=== PATIENT | female | born 1940 | race Caucasian/White ===

== ENCOUNTER 2023-09-01 15:05 | Emergency (ER) | payer MEDICARE ==
[~2023-09-01] VITALS: Ht 165.1 cm; Wt 77.2 kg
[~2023-09-01 15:05] MED LIST: LORA2TAB89 PO
[2023-09-01 15:20] VITALS: BP 124/76; RESP 18; O2SAT 99
[2023-09-01 15:43] VITALS: PULSE 115
== END 2023-09-01 16:58 | disposition left against medical advice (07) ==
LOC: ER 15:05 → EDBD 15:05 → ER 16:58
DX: R53.1 Weakness (principal); R07.89 Other chest pain; Z53.21 Procedure and treatment not carried out due to patient leaving prior to being seen by health care provider
CPT/HCPCS: 93005

== ENCOUNTER 2023-10-02 14:08 | Inpatient (IN) | payer MEDICARE ==
[~2023-10-02] VITALS: Ht 165.1 cm; Wt 87.1 kg
[2023-10-02 16:13] LABS: Basophils # (auto) 0 10 ^3/uL (0-0.2); Basophils % (auto) 0.5 % (0.0-2.0); Eosinophils # (auto) 0.3 10 ^3/uL (0-0.8); Eosinophils % (auto) 2.9 % (0.0-7.0); Hematocrit 30.8 % (36.0-46.0); Hemoglobin 9.4 g/dL (12.2-16.2); Lymphocytes # (auto) 0.7 10 ^3/uL (0.4-5.4); Lymphocytes % (auto) 7.7 % (10.0-50.0); Mean Corpuscular Hgb Conc. 30.6 g/dL (32.0-36.0); Mean Corpuscular Volume 78.5 fL (80.0-100.0); Monocytes # (auto) 0.8 10 ^3/uL (0-1.3); Monocytes % (auto) 8.2 % (0.0-12.0); Neutrophils # (auto) 7.4 10 ^3/uL (1.6-8.6); Neutrophils % (auto) 80.7 % (37.0-80.0); Red Blood Cells 3.92 10^6/uL (4.0-5.20); Red Cell Distribution Width 18.3 % (11.8-14.3); White Blood Cell 9.2 10^3/uL (4.4-10.8)
[2023-10-02 16:32] LABS: Alanine Aminotransferase 28 U/L (7-40); Albumin 3.9 g/dL (3.2-4.8); Alkaline Phosphatase 96 U/L (46-116); Anion Gap 7 (5-15); Aspartate Aminotransferase 26 U/L (13-40); BUN/Creatinine Ratio 14.1 (10.0-20.0); Blood Urea Nitrogen 13 mg/dL (9-23); Calcium 8.8 mg/dL (8.7-10.4); Carbon Dioxide 24 mmol/L (20-30); Chloride 111 mmol/L (98-107); Glucose 86 mg/dL (74-106); Magnesium 1.8 mg/dL (1.6-2.6); Potassium 3.6 mmol/L (3.5-5.1); Sodium 142 mmol/L (136-145); Total Protein 6.1 g/dL (5.7-8.2)
[2023-10-02] MEDS ORDERED: ACETAMINOPHEN 325 MG TAB PO PRN (22:00)
[2023-10-02] MEDS ORDERED: DOCUSATE SOD 100 MG CAP PO PRN (22:00)
[2023-10-02] MEDS ORDERED: ONDANSETRON HCL 4 MG/2 ML VIAL IV PRN (22:00)
[2023-10-02] MEDS: SODIUM CHLOR 0.9% PF (SALINE LOCK) 10ML VIAL/SYR IV SCH (22:00)
[2023-10-02 23:00] VITALS: PULSE 65; RESP 17; O2SAT 98
[2023-10-02] MEDS ORDERED: MORPHINE SULFATE INJ 2 MG/ml SYRG IV PRN (23:15)
[2023-10-02] MEDS ORDERED: NITROGLYCERIN 0.4 MG SL TAB SL PRN (23:15)
[2023-10-03] MEDS: SODIUM CHLORIDE 0.9% 1,000 ML IV ONE (00:01)
[2023-10-03] MEDS: HYDROcodone-ACET 5/325MG TAB PO PRN (00:07)
[2023-10-03] MEDS: ATORVASTATIN 20 MG TAB PO SCH (00:07)
[2023-10-03] MEDS: MELATONIN 5 MG TAB PO ONE (00:07)
[2023-10-03 06:02] LABS: Alanine Aminotransferase 18 U/L (7-40); Albumin 3.1 g/dL (3.2-4.8); Alkaline Phosphatase 71 U/L (46-116); Anion Gap 6 (5-15); Aspartate Aminotransferase 17 U/L (13-40); BUN/Creatinine Ratio 14.3 (10.0-20.0); Basophils # (auto) 0 10 ^3/uL (0-0.2); Basophils % (auto) 0.6 % (0.0-2.0); Bilirubin, Total 0.7 mg/dL (0.2-1.0); Blood Urea Nitrogen 12 mg/dL (9-23); Calcium 8.2 mg/dL (8.7-10.4); Carbon Dioxide 24 mmol/L (20-30); Chloride 112 mmol/L (98-107); Eosinophils # (auto) 0.3 10 ^3/uL (0-0.8); Glucose 82 mg/dL (74-106); Hemoglobin 7.7 g/dL (12.2-16.2); Lymphocytes # (auto) 1.1 10 ^3/uL (0.4-5.4); Nucleated Red Blood Cells % 0.1 %; Potassium 3.4 mmol/L (3.5-5.1); Red Cell Distribution Width 17.5 % (11.8-14.3); Sodium 142 mmol/L (136-145); White Blood Cell 5.4 10^3/uL (4.4-10.8)
[2023-10-03 06:05] LABS: Eosinophils % (auto) 5.3 % (0.0-7.0); Hematocrit 23.9 % (36.0-46.0); Lymphocytes % (auto) 20.9 % (10.0-50.0); Mean Corpuscular Hemoglobin 24.9 pg (28.0-32.0); Mean Corpuscular Hgb Conc. 32.2 g/dL (32.0-36.0); Mean Corpuscular Volume 77.2 fL (80.0-100.0); Monocytes # (auto) 0.6 10 ^3/uL (0-1.3); Monocytes % (auto) 10.8 % (0.0-12.0); Neutrophils # (auto) 3.4 10 ^3/uL (1.6-8.6); Neutrophils % (auto) 62.4 % (37.0-80.0)
[2023-10-03 07:50] VITALS: PULSE 70; RESP 15; O2SAT 97
[2023-10-03 08:43] LABS: % Iron Saturation 4.8 % (15-50)
[2023-10-03 08:54] LABS: INR 1.13 (0.9-1.15); Prothrombin Time 11.8 sec (9.3-11.8)
[2023-10-03] MEDS: POTASSIUM CHL 20 Meq TABLET PO ONE (09:00)
[2023-10-03 09:07] LABS: CRP High Sensitivity 2.5 mg/dL (<1.0)
[2023-10-03 09:09] LABS: Magnesium 1.9 mg/dL (1.6-2.6)
[2023-10-03] MEDS ORDERED: LORazepam 2MG/ML-1ML VIAL IV PRN (10:00)
[2023-10-03 10:38] LABS: Urine Bacteria NONE SEEN /hpf (None Seen); Urine Blood Negative /uL (Negative); Urine Clarity Clear (Clear); Urine Color Yellow (Yellow); Urine Mucus FEW (None Seen); Urine Protein, UAD Negative (Negative); Urine Specific Gravity 1.014 (1.001-1.035); Urine Urobilinogen Normal (Negative); Urine WBC 7 /hpf (0 - 5); Urine pH 5.5 (5.0-8.0)
[2023-10-03 10:42] LABS: Ferritin 14.9 ng/mL (10-291)
[2023-10-03] MEDS ORDERED: ATOR20TA PO (11:09)
[2023-10-03] MEDS ORDERED: VORT1TAB PO (11:09)
[2023-10-03] MEDS ORDERED: FURO40TA4 PO (11:09)
[2023-10-03] MEDS ORDERED: DRON400T PO (11:09)
[2023-10-03] MEDS ORDERED: LORA-1123 PO (11:09)
[2023-10-03] MEDS ORDERED: IBUP-1456 PO (11:09)
[2023-10-03 11:23] LABS: Folate (Folic Acid) 11.32 ng/mL (>5.38)
[2023-10-03] MEDS: CYANOCOBALAMIN (B-12) 1000 MCG/1 ML VIAL IM ONE (13:48)
[2023-10-03] MEDS: cefTRIAXone 1GM/50ML D5W 50 ML IV ONE (13:48)
[2023-10-03] MEDS: GABAPENTIN 100 MG CAP PO SCH (14:16)
[2023-10-03 16:48] VITALS: BP 135/57; PULSE 71; RESP 18; TEMP 98.3; O2SAT 97
[2023-10-03 16:53] VITALS: BP 135/57; PULSE 71; RESP 18; TEMP 98.3
[2023-10-03 16:58] LABS: Erythrocyte Sedimentation Rate 15 mm/hr (0-20)
[2023-10-03] MEDS: LACTULOSE 20Gm/30ML SOLN PO ONE (17:10)
[2023-10-03 20:00] VITALS: PULSE 80
[2023-10-03 22:00] VITALS: BP 136/64; PULSE 90; RESP 18; TEMP 97.9; O2SAT 97
[2023-10-04] VITALS (7 sets, daily range): BP systolic 111–135; BP diastolic 46–71; PULSE 53–86; RESP 16–24; TEMP 98–98.5; O2SAT 91–96
[2023-10-04] MEDS ORDERED: AMIODARONE HCL 200 MG TAB PO SCH (07:00)
[2023-10-04] MEDS: cefTRIAXone 1GM/50ML D5W 50 ML IV SCH (09:24)
[2023-10-04] MEDS: CYANOCOBALAMIN 500 MCG TAB PO SCH (09:24)
[2023-10-04 11:06] LABS: Basophils # (auto) 0 10 ^3/uL (0-0.2); Basophils % (auto) 0.2 % (0.0-2.0); Eosinophils # (auto) 0.1 10 ^3/uL (0-0.8); Hematocrit 27.3 % (36.0-46.0); Hemoglobin 8.6 g/dL (12.2-16.2); Lymphocytes # (auto) 0.4 10 ^3/uL (0.4-5.4); Neutrophils # (auto) 7.6 10 ^3/uL (1.6-8.6)
[2023-10-04 11:10] LABS: Eosinophils % (auto) 1.5 % (0.0-7.0); Mean Corpuscular Hemoglobin 24.2 pg (28.0-32.0); Mean Corpuscular Hgb Conc. 31.3 g/dL (32.0-36.0); Mean Corpuscular Volume 77.1 fL (80.0-100.0); Monocytes # (auto) 0.7 10 ^3/uL (0-1.3); Monocytes % (auto) 7.6 % (0.0-12.0); Neutrophils % (auto) 85.7 % (37.0-80.0); Red Blood Cells 3.54 10^6/uL (4.0-5.20); Red Cell Distribution Width 17.3 % (11.8-14.3); White Blood Cell 8.9 10^3/uL (4.4-10.8)
[2023-10-04 11:32] LABS: Alanine Aminotransferase 16 U/L (7-40); Albumin 3.5 g/dL (3.2-4.8); Alkaline Phosphatase 74 U/L (46-116); Anion Gap 6 (5-15); Aspartate Aminotransferase 16 U/L (13-40); BUN/Creatinine Ratio 11.8 (10.0-20.0); Blood Urea Nitrogen 8 mg/dL (9-23); Calcium 8.4 mg/dL (8.5-10.1); Carbon Dioxide 27 mmol/L (20-30); Chloride 105 mmol/L (98-107); Glucose 99 mg/dL (74-106); Potassium 3.7 mmol/L (3.5-5.1); Sodium 138 mmol/L (136-145)
[2023-10-04 11:33] LABS: Total Protein 5.5 g/dL (5.7-8.2)
[2023-10-04 11:45] LABS: Magnesium 1.7 mg/dL (1.6-2.6)
[2023-10-04] MEDS: HYDROcodone-ACET 7.5/325MG TAB PO PRN (11:45)
[2023-10-04] MEDS: IRON SUCROSE COMPLEX 100 ML IV SCH (13:49)
[2023-10-04] MEDS: AMIODARONE HCL 200 MG TAB PO SCH (22:33)
[2023-10-05] VITALS (9 sets, daily range): BP systolic 102–134; BP diastolic 56–60; PULSE 70–91; RESP 16–20; TEMP 97–99.6; O2SAT 91–96
[2023-10-05 06:30] LABS: Basophils # (auto) 0 10 ^3/uL (0-0.2); Basophils % (auto) 0.4 % (0.0-2.0); Eosinophils # (auto) 0.3 10 ^3/uL (0-0.8); Lymphocytes # (auto) 0.3 10 ^3/uL (0.4-5.4); Monocytes # (auto) 0.5 10 ^3/uL (0-1.3)
[2023-10-05 06:34] LABS: Eosinophils % (auto) 4.4 % (0.0-7.0); Hematocrit 24.7 % (36.0-46.0); Hemoglobin 7.8 g/dL (12.2-16.2); Mean Corpuscular Hemoglobin 24.7 pg (28.0-32.0); Mean Corpuscular Hgb Conc. 31.7 g/dL (32.0-36.0); Mean Corpuscular Volume 77.8 fL (80.0-100.0); Monocytes % (auto) 7.4 % (0.0-12.0); Neutrophils # (auto) 5.2 10 ^3/uL (1.6-8.6); Neutrophils % (auto) 82.8 % (37.0-80.0); Red Blood Cells 3.17 10^6/uL (4.0-5.20); Red Cell Distribution Width 17.6 % (11.8-14.3); White Blood Cell 6.3 10^3/uL (4.4-10.8)
[2023-10-05 06:36] LABS: Calcium 8.5 mg/dL (8.7-10.4); Chloride 105 mmol/L (98-107); Potassium 3.7 mmol/L (3.5-5.1); Sodium 138 mmol/L (136-145)
[2023-10-05 06:37] LABS: Anion Gap 7 (5-15); Carbon Dioxide 26 mmol/L (20-30)
[2023-10-05 06:43] LABS: BUN/Creatinine Ratio 12.9 (10.0-20.0); Blood Urea Nitrogen 9 mg/dL (9-23); Glucose 76 mg/dL (74-106)
[2023-10-05] MEDS: LACTULOSE 20Gm/30ML SOLN PO ONE (12:38)
[2023-10-05] MEDS ORDERED: FER325T PO (14:10)
[2023-10-05] MEDS ORDERED: GAB100C PO ×2 (14:10→15:04)
[2023-10-05] MEDS ORDERED: CEFP200T15 PO (14:10)
[2023-10-05] MEDS ORDERED: CYAN500T3 PO (14:10)
[2023-10-05] MEDS ORDERED: METH-1181 PO (15:04)
[2023-10-05] MEDS ORDERED: ACET1CAP14 PO (15:04)
[2023-10-05] MEDS: GABAPENTIN 100 MG CAP PO SCH (20:36)
[2023-10-06 01:00] VITALS: BP 137/62; PULSE 83; RESP 20; TEMP 98.1; O2SAT 94
[2023-10-06 05:00] VITALS: BP 119/47; PULSE 84; RESP 20; TEMP 98.3; O2SAT 93
[2023-10-06 08:00] VITALS: BP 119/47; PULSE 84; RESP 20; TEMP 98.3; O2SAT 93
[2023-10-06 08:56] LABS: Hepatitis B Surface Antigen Negative (Negative)
[2023-10-06 09:00] VITALS: BP 129/66; PULSE 90; RESP 20; TEMP 98.1; O2SAT 90
[2023-10-06 09:02] VITALS: BP 119/47; PULSE 84; RESP 20; TEMP 98.3; O2SAT 93
[2023-10-06 09:17] LABS: Hepatitis C Antibody Negative (Negative)
== END 2023-10-06 09:45 | disposition home health service (06) | DRG 552 ==
LOC: EDBD 14:08 → ER 14:08 → TELE 23:03 → TELE-WESTW 10-03 16:21
PROVIDERS: ADMIT Internal Medicine; ATTEND Internal Medicine
DX: M54.81 Occipital neuralgia (principal); I13.0 Hypertensive heart and chronic kidney disease with heart failure and stage 1 through stage 4 chronic kidney disease, or unspecified chronic kidney disease; I50.32 Chronic diastolic (congestive) heart failure; N39.0 Urinary tract infection, site not specified; M50.30 Other cervical disc degeneration, unspecified cervical region; M47.22 Other spondylosis with radiculopathy, cervical region; M31.6 Other giant cell arteritis; D50.9 Iron deficiency anemia, unspecified; E87.6 Hypokalemia; I48.0 Paroxysmal atrial fibrillation; N18.2 Chronic kidney disease, stage 2 (mild); M47.892 Other spondylosis, cervical region; I07.1 Rheumatic tricuspid insufficiency; E53.8 Deficiency of other specified B group vitamins; Z91.199 Patient's noncompliance with other medical treatment and regimen due to unspecified reason; Z95.0 Presence of cardiac pacemaker; Z88.6 Allergy status to analgesic agent; Z79.01 Long term (current) use of anticoagulants; Z79.899 Other long term (current) drug therapy; Z86.73 Personal history of transient ischemic attack (TIA), and cerebral infarction without residual deficits; Z95.1 Presence of aortocoronary bypass graft
CPT/HCPCS: 36415; 70450; 70551; 71045; 72125; 72141; 80048; 80053; 80061; 81001; 82306; 82607; 82728; 82746; 83540; 83550; 83735; 83880; 84443; 84484; 85025; 85610; 85652; 86141; 86803; 86850; 86900; 86901; 87086; 87340; 93005; 93306; G0378; J1756

== ENCOUNTER 2025-05-20 11:58 | Emergency (ER) | payer MEDICARE, OTHER ==
[~2025-05-20] VITALS: Ht 162.6 cm; Wt 65.0 kg
[~2025-05-20 11:58] MED LIST changes: +ACET1CAP14 PO; +ATOR20TA PO; +CEFP200T15 PO; +CYAN500T3 PO; +DRON400T PO; +FER325T PO; +FURO40TA4 PO; +GAB100C PO; +LORA-1123 PO; -LORA2TAB89 PO; +VORT1TAB PO
[2025-05-20 12:10] VITALS: PULSE 96; RESP 16; O2SAT 98
--- NOTE | 2025-05-20 12:13 | ED.PDOC ---
History of Present Illness HPI Comments 84 year old female with PMHx pacemaker presents to the ED with a chief complaint of syncopal episode onset today (05/20/25). Per EMS, 911 was called due to patient experiencing syncopal episode, witnessed by , was assisted to the ground by . Patient states she had pacemaker placed by Dr. Willett, was told there was issues with a few wires. Upon EMS arrival, patient was in a-fib, RVR, was experiencing palpitations, was given 350 mL IVF in route to ED. Patient states symptoms had slight improvement. Is currently on Eliquis. Denies shortness of breath, headache, dizziness, blurred vision, weakness, numbness/tingling, fever, chills. No other symptoms or modifying factors present at this time. Chief Complaint: Syncope Time Seen by MD: 12:00 Reviewed Notes: Medications, Allergies Allergies: Coded Allergies: NO KNOWN ALLERGIES (Unverified , 05/20/25) Information Source: Patient, Emergency Med Personnel Mode of Arrival: EMS Severity: Moderate Timing: Hours Duration: Since onset Prehospital treatment: IVF Past Medical History PAST MEDICAL HISTORY: AFIB Surgical History: Pacemaker LARDER COOK History: No Pertinent LARDER COOK History Family History Family History: Reviewed,noncontributory to illness, No family hx of Cancer, No family hx of DM, No family hx of Heart svetlana, No family hx of HTN, No family hx ofKidney svetlana, No family hx of Liver svetlana, No family hx of Lung svetlana, No family hx of Stroke Social History Smoker: Non-Smoker Alcohol: Denies ETOH Use Drugs: Denies Drug Use Lives In: Home Constitutional: denies: chills, diaphoresis, fatigue, fever, malaise, sweats, weakness, others EENTM: denies: blurred vision, double vision, ear bleeding, ear discharge, ear drainage, ear pain, ear ringing, eye pain, eye redness, hearing loss, mouth pain, mouth swelling, nasal discharge, nose bleeding, nose congestion, nose pain, photophobia, tearing, throat pain, throat swelling, voice changes, others Respiratory: denies: cough, hemoptysis, orthopnea, SOB at rest, shortness of breath, SOB with excertion, stridor, wheezing, others Cardiovascular: reports: palpitations; denies: chest pain, dizzy spells, diaphoresis, Dyspnea on exertion, edema, irregular heart beat, left arm pain, lightheadedness, PND, syncope, others Gastrointestinal: denies: abdomen distended, abdominal pain, blood streaked bowels, constipated, diarrhea, dysphagia, difficulty swallowing, hematemesis, melena, nausea, poor appetite, poor fluid intake, rectal bleeding, rectal pain, vomiting, others Genitourinary: denies: abnormal vagina bleeding, burning, dyspareunia, dysuria, flank pain, frequency, hematuria, incontinence, pain, , vagina discharge, urgency, others Neurological: reports: others (syncope); denies: dizziness, fainting, headache, left sided numbness, left sided weakness, numbness, paresthesia, pre-existing deficit, right sided numbness, right sided weakness, seizure, speech problems, tingling, tremors, weakness Musculoskeletal: denies: back pain, gout, joint pain, joint swelling, muscle pain, muscle stiffness, neck pain, others Integumetry: denies: bruises, change in color, change in hair/nails, dryness, laceration, lesions, lumps, rash, wounds, others Allergic/Immunocompromised: denies: Difficulty Healing, Frequent Infections, Hives, Itching, others Hematologic/Lymphatic: denies: anemia, blood clots, easy bleeding, easy bruising, swollen glands, others Endocrine: denies: excessive hunger, excessive sweating, excessive thirst, excessive urination, flushing, intolerance to cold, intolerance to heat, unexplained weight gain, unexplained weight loss, others Psychiatric: denies: anxiety, bipolar disorder, depression, hopeless, panic disorder, schizophrenia, sleepless, suicidal, others All Other Systems: Reviewed and Negative Physical Exam General Appearance: Normal HEENT: Normal ENT Inspection, Pharynx Normal, TMs Normal Neck: Full Range of Motion, Non-Tender, Normal, Normal Inspection Respiratory: Chest Non-Tender, Lungs Clear, No Accessory Muscle Use, No Respiratory Distress, Normal Breath Sounds Cardiovascular: No Edema, No JVD, No Murmur, No Gallop, Normal Peripheral Pulses, Regular Rate/Rhythm Breast Exam: Deferred Gastrointestinal: No Organomegaly, Non Tender, No Pulsatile Mass, Normal Bowel Sounds, Soft Genitalia: Deferred Pelvic: Deferred Rectal: Deferred Extremities: No calf tenderness, Normal capillary refill, Normal inspection, Normal range of motion, Non-tender, No pedal edema Musculoskeletal : Apperance: Normal Neurologic: Alert, obstetrician/gynecologist II-XII nml as Tested, No Motor Deficits, Normal Affect, Normal Mood, No Sensory Deficits Cerebellar Function: Normal Reflexes: Normal Skin: Dry, Normal Color, Warm Lymphatic: No Adenopathy Was a procedure done? Was a procedure done?: No Differential Dx Considerations may include: acs, cva, viral syndrome, electrolyte abnormality, infectious etiology, cardiac arrhythmia X-Ray, Labs, Meds, VS Vital Signs Date Time Temp Pulse Resp B/P (MAP) Pulse Ox O2 Delivery O2 Flow Rate FiO2 05/20/25 12:38 97.5 96 18 101/76 (84) 98 97.5 05/20/25 12:10 96 16 98 Room Air* 0 21 05/20/25 12:05 97 05/20/25 12:00 97.9 134 14 134/74 95 97.9 Lab Test 05/20/25 13:29 05/20/25 12:25 Range/Units Troponin I High Sensitivity Pending 7 </=34 ng/L White Blood Count 4.1 L 4.4-10.8 10^3/uL Red Blood Count 3.90 L 4.0-5.20 10^6/uL Hemoglobin 11.6 L 12.2-16.2 g/dL Hematocrit 36.0 36.0-46.0 % Mean Corpuscular Volume 92.3 80.0-100.0 fL Mean Corpuscular Hemoglobin 29.6 28.0-32.0 pg Mean Corpuscular Hemoglobin Concent 32.1 32.0-36.0 g/dL Red Cell Distribution Width 15.7 H 11.8-14.3 % Platelet Count 142 140-450 10^3/uL Mean Platelet Volume 9.1 6.9-10.8 fL Neutrophils (%) (Auto) 73.1 37.0-80.0 % Lymphocytes (%) (Auto) 14.4 10.0-50.0 % Monocytes (%) (Auto) 8.6 0.0-12.0 % Eosinophils (%) (Auto) 3.3 0.0-7.0 % Basophils (%) (Auto) 0.6 0.0-2.0 % Neutrophils # (Auto) 3.0 1.6-8.6 10 ^3/uL Lymphocytes # (Auto) 0.6 0.4-5.4 10 ^3/uL Monocytes # (Auto) 0.4 0-1.3 10 ^3/uL Eosinophils # (Auto) 0.1 0-0.8 10 ^3/uL Basophils # (Auto) 0 0-0.2 10 ^3/uL Nucleated Red Blood Cells 0.1 % Sodium Level 145 136-145 mmol/L Potassium Level 3.0 L 3.5-5.1 mmol/L Chloride Level 109 H 98-107 mmol/L Carbon Dioxide Level 23 20-31 mmol/L Anion Gap 13 5-15 Blood Urea Nitrogen 16 9-23 mg/dL Creatinine 1.00 0.550-1.02 mg/dL Glomerular Filtration Rate Calc 55 >90 mL/min BUN/Creatinine Ratio 16.0 10.0-20.0 Serum Glucose 133 H 74-106 mg/dL Calcium Level 8.7 8.7-10.4 mg/dL B-Type Natriuretic Peptide 205.04 0-100 pg/mL [place] [address] Ph: [phone] DIAGNOSTIC IMAGING Diagnostic Imaging Report : [id number] Signed PATIENT: MANOLO CASTILLO ACCT: [id number] UNIT: [id number] : 1940 LOC: ER ROOM / BED: / AGE / SEX: 84 / F ADM STATUS: REG ER SERVICE 1208 ORDERING PHYSICIAN: APRIL VARGHESE MD PROCEDURE(s): HWOCT - HEAD WITHOUT CONTRAST REASON: syncope ORDER NUMBER(s): [id number], ACCESSION NUMBER(s): [id number] CT HEAD WITHOUT CONTRAST Indication: syncope EXAM DATE: 05/20/2025 12:49 PM COMPARISON: None TECHNIQUE: CT of the head without intravenous contrast. RADIATION DOSE: CTDIvol: 53. mGy, DLP: 966 mGy*cm FINDINGS: There is no intracranial hemorrhage. There is no extra-axial fluid, mass, mass effect or midline shift. The ventricles are midline and normal in size. Basilar cisterns are patent. Mild periventricular and subcortical white matter chronic microvascular ischemic changes. Wvny-eo-yimtmzki global cerebral volume loss. The paranasal sinuses and mastoids are well-pneumatized. Imaged portion of the orbits are unremarkable. IMPRESSION: No intracranial hemorrhage or mass effect. ATED BY: SOCRATES CHRISTIANSON MD DICTATED DATE/TIME: 05/20/254 SIGNED BY: SOCRATES CHRISTIANSON MD SIGNED DATE/TIME: 05/20/254 CC: [place] [id number] Ph: [phone] DIAGNOSTIC IMAGING Diagnostic Imaging Report : [id number] Signed PATIENT: MANOLO CASTILLO ACCT: [id number] UNIT: [id number] : 1940 LOC: ER ROOM / BED: / AGE / SEX: 84 / F ADM STATUS: REG ER SERVICE 120 ORDERING PHYSICIAN: APRIL VARGHESE MD PROCEDURE(s): CXRP - CHEST PORTABLE REASON: palpitations ORDER NUMBER(s): [id number], ACCESSION NUMBER(s): [id number] CHEST PORTABLE, HISTORY: palpitations COMPARISON: CT HEAD WITHOUT CONTRAST on DOS: 05/20/25 CT HEAD WITHOUT CONTRAST on DOS: 05/20/25 TECHNICAL DATA: 1 view of the chest was obtained. FINDINGS: Lines and tubes: A cardiac pacer is noted. Cardiomediastinal silhouette: normal Pulmonary vasculature: normal Lung expansion: normal Lung airspace: normal Lung interstitium: normal Pleura: normal Pneumothorax: no Bones: Unremarkable Other: no IMPRESSION: No acute intrathoracic abnormality. ATED BY: TRENTON MENDOZA MD DICTATED DATE/TIME: 05/20/251312 SIGNED BY: TRENTON MENDOZA MD SIGNED DATE/TIME: 05/20/251312 CC: Time of 1ST Reevaluation: 12:30 Reevaluation 1ST: Unchanged Patient Education/Counseling: Diagnosis, Treatment, Prognosis Family Education/Counseling: No Family Present SEPSIS Sepsis Screen Physician Orders Chest Portable (05/20/25 12:02) Electrocardigram (05/20/25 12:02) Troponin-I Hs (05/20/25 13:02) Troponin-I Hs (05/20/25 15:02) Electrocardigram (05/20/25 13:02) Electrocardigram (05/20/25 15:02) Head Without Contrast (05/20/25 12:08) Vital Signs Date Time Temp Pulse Resp B/P (MAP) Pulse Ox O2 Delivery O2 Flow Rate FiO2 05/20/25 12:38 97.5 96 18 101/76 (84) 98 97.5 05/20/25 12:10 96 16 98 Room Air* 0 21 05/20/25 12:05 97 05/20/25 12:00 97.9 134 14 134/74 95 97.9 Laboratory Tests Test 05/20/25 12:25 White Blood Count 4.1 10^3/uL (4.4-10.8) L Departure 1 Departure Time of Disposition: 14:07 (Patient presented with syncope today and should be admitted. Data: 1. I ordered and reviewed the result of at least 3 labs including a CBC, BMP, and troponin. 2. I independently interpreted the following tests: EKG which shows a sinus arrhythmia and a chest x-ray which shows benign chest and a CT head which shows benign brain.Risk:This patient has a high risk of morbidity due to further diagnostic testing or treatment and may suffer from an acute cardiac, neurologic, or infectious disorder. Rationale: Patient should be admitted to the hospital for further management.) Impression: Primary Impression: Syncope and collapse Additional Impressions: Palpitations Shortness of breath Disposition: ADMITTED INPATIENT Admit to: Tele Condition: Guarded Critical Care Note Critical Care Time?: Yes Critical care comment: Syncope and concern for AFib with RVR Authorized and Performed by: April Varghese MD Total critical care time: Approximately 38 minutes Due to a high probability of clinically significant, life threatening deterioration, the patient required my highest level of preparedness to intervene emergently and I personally spent this critical care time directly and personally managing the patient. This critical care time included obtaining a history; examining the patient; pulse oximetry; ordering and review of studies; arranging urgent treatment with development of a management plan; evaluation of patient's response to treatment; frequent reassessment; and, discussions with other providers. This critical care time was performed to assess and manage the high probability of imminent, life-threatening deterioration that could result in multi-organ failure. It was exclusive of separately billable procedures and treating other patients and teaching time. Please see my other sections and the rest of the note for further information on patient assessment and treatment. Stability Stability form required: No I personally scribed for APRIL VARGHESE MD ([email or web address]) on 05/20/25 at 12:13. Electronically submitted by Rhonda Lucio ([email or web address]). I personally scribed for APRIL VARGHESE MD ([email or web address]) on 05/20/25 at 12:13. Electronically submitted by Rhonda Lucio ([email or web address]). I personally scribed for APRIL VARGHESE MD ([email or web address]) on 05/20/25 at 13:38. Electronically submitted by Rhonda Lucio ([email or web address]). APRIL VARGHESE MD May 20, 2025 12:13
[2025-05-20 13:05] LABS: Hematocrit 36.0 % (36.0-46.0); Hemoglobin 11.6 g/dL (12.2-16.2); Mean Corpuscular Hemoglobin 29.6 pg (28.0-32.0); Mean Corpuscular Volume 92.3 fL (80.0-100.0); Nucleated Red Blood Cells % 0.1 %
[2025-05-20 13:14] LABS: Anion Gap 13 (5-15); Carbon Dioxide 23 mmol/L (20-31)
--- NOTE | 2025-05-20 13:15 | DVH ---
XY CHEST PORTABLE, HISTORY: palpitations COMPARISON: CT HEAD WITHOUT CONTRAST on DOS: 05/20/25 CT HEAD WITHOUT CONTRAST on DOS: 05/20/25 TECHNICAL DATA: 1 view of the chest was obtained. FINDINGS: Lines and tubes: A cardiac pacer is noted. Cardiomediastinal silhouette: normal Pulmonary vasculature: normal Lung expansion: normal Lung airspace: normal Lung interstitium: normal Pleura: normal Pneumothorax: no Bones: Unremarkable Other: no IMPRESSION: No acute intrathoracic abnormality.
[2025-05-20 13:20] LABS: BUN/Creatinine Ratio 16.0 (10.0-20.0); Blood Urea Nitrogen 16 mg/dL (9-23)
[2025-05-20 13:21] LABS: Calcium 8.7 mg/dL (8.7-10.4); Chloride 109 mmol/L (98-107); Glucose 133 mg/dL (74-106); Potassium 3.0 mmol/L (3.5-5.1); Sodium 145 mmol/L (136-145)
--- NOTE | 2025-05-20 13:21 | DVH ---
CT HEAD WITHOUT CONTRAST Indication: syncope EXAM DATE: 05/20/2025 12:49 PM COMPARISON: None TECHNIQUE: CT of the head without intravenous contrast. RADIATION DOSE: CTDIvol: 53. mGy, DLP: 966 mGy*cm FINDINGS: There is no intracranial hemorrhage. There is no extra-axial fluid, mass, mass effect or midline shif t. The ventricles are midline and normal in size. Basilar cisterns are patent. Mild periventricular a nd subcortical white matter chronic microvascular ischemic changes. Mall-vq-lblpijbj global cerebral volume loss. The paranasal sinuses and mastoids are well-pneumatized. Imaged portion of the orbits are unremarkabl e. IMPRESSION: No intracranial hemorrhage or mass effect.
--- NOTE | 2025-05-20 17:00 | DVHINCON2 ---
Date of service: May 20, 2025 History of Present Illness HPI The patient is a 84-year-old female who presented to the hospital for syncopal episode. She mentions that she did not eat anything today and went to [facility] for some urgent work. While in [facility] she felt dizzy and passed out momentarily. Cardiology is involved for cardiac aspects of care. The patient is known to our practice from outside and before. The patient does have a BIV ICD ([employer]) which was implanted recently. There is some question if it works properly. The patient does have a history of persistent and atrial fibrillation for which is on Eliquis as outpatient. 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 Home Meds Active Scripts Acetaminophen (Tylenol) 325 Mg Cap, 325 MG PO Q6HPRN PRN for 5 Days, #30 CAP Prov:[facility] 10/05/23 Gabapentin (Gabapentin) 100 Mg Cap, 200 MG PO TID for 30 Days, #90 CAP Prov:[facility] 10/05/23 Cefpodoxime Proxetil (Cefpodoxime Proxetil) 200 Mg Tab, 1 TAB PO BID for 5 Days, #10 TAB Prov:[facility] 10/05/23 Ferrous Sulfate (FERROUS SULFATE) 325 Mg Tb, 1 TAB PO BID for 30 Days, #60 TAB 3 Refills Prov:[facility] 10/05/23 Cyanocobalamin (Gnp Vitamin B12) 500 Mcg Tab, 500 MCG PO DAILY for 30 Days, #30 TAB 2 Refills Prov:[facility] 10/05/23 Reported Medications Vortioxetine Hydrobromide (Trintellix) 5 Mg Tab, 1 TAB PO DAILY 10/03/23 Furosemide (Furosemide) 40 Mg Tab, 1 TAB PO DAILY 10/03/23 Dronedarone Hydrochloride (Multaq) 400 Mg Tab, 1 TAB PO BID 10/03/23 Atorvastatin Calcium (Lipitor) 20 Mg Tab, 1 TAB PO DAILY 10/03/23 Lorazepam (Lorazepam) 1 Mg Tab, 1 TAB PO DAILY PRN for ANXIETY 10/03/23 Past Medical History Others Past medical history includes persistent atrial fibrillation (old history of GILBERTO/cardioversion, failed), hypertension, hyperlipidemia, systolic heart failure, nonischemic cardiomyopathy, status post BiV ICD upgrade ([facility]), component of mild type 2 pulmonary hypertension, vasovagal syncope, anxiety/depression/psychosis, memory loss, old history of esophageal stricture, both history of weight loss surgery, with history of subdural hematoma (years ago), has continued to take anticoagulation (Eliquis), CKD, old CVA, neuropathy, pernicious anemia, noncompliance and deconditioning. Patient Family History: FH: heart disease G8 BROTHER G8 BROTHER Smoker: No Hx (Negative) Alocohol: None Lives with: With family Review of Systems Constitutional: No symptom reported Ears, Nose, & Throat: No symptom reported Eyes: No symptom reported Pulmonary/Respiratory: No symptom reported Cardiovascular: Lt Headedness All Other Systems 14 point review of system was performed. Relevant findings as per above and as per HPI. Otherwise negative. H&P Exam Vital Signs Vital Signs Date Time Temp Pulse Resp B/P (MAP) Pulse Ox O2 Delivery O2 Flow Rate FiO2 05/20/25 14:00 97.7 108 18 112/72 (85) 100 97.7 05/20/25 12:10 Room Air* 0 21 General Appeara: Well developed, Cachetic Head Exam: Normal inspection Neck Exam: Normal inspection Eye Exam: bilateral eye PERRL Nasal Exam: Normal inspection Mouth: Normal Inspection Pulmonary/Respiratory: Lungs clear Cardiovascular/Chest: Regular rate, Systolic murmur Peripheral Pulses: 2+ carotid (R), 2+ carotid (L), 2+ femoral (R), 2+ femoral (L) Abdominal Exam: Normal bowel sounds, Soft, No hepatospenomegaly Neuro/Mental St: Alert, Oriented Appearance: Appropriate appearance Eye contact/ Speech: Cooperative Labs/Xrays Labs Test 05/20/25 15:28 05/20/25 12:25 Range/Units Troponin I High Sensitivity 7 </=34 ng/L White Blood Count 4.1 L 4.4-10.8 10^3/uL Red Blood Count 3.90 L 4.0-5.20 10^6/uL Hemoglobin 11.6 L 12.2-16.2 g/dL Hematocrit 36.0 36.0-46.0 % Mean Corpuscular Volume 92.3 80.0-100.0 fL Mean Corpuscular Hemoglobin 29.6 28.0-32.0 pg Mean Corpuscular Hemoglobin Concent 32.1 32.0-36.0 g/dL Red Cell Distribution Width 15.7 H 11.8-14.3 % Platelet Count 142 140-450 10^3/uL Mean Platelet Volume 9.1 6.9-10.8 fL Neutrophils (%) (Auto) 73.1 37.0-80.0 % Lymphocytes (%) (Auto) 14.4 10.0-50.0 % Monocytes (%) (Auto) 8.6 0.0-12.0 % Eosinophils (%) (Auto) 3.3 0.0-7.0 % Basophils (%) (Auto) 0.6 0.0-2.0 % Neutrophils # (Auto) 3.0 1.6-8.6 10 ^3/uL Lymphocytes # (Auto) 0.6 0.4-5.4 10 ^3/uL Monocytes # (Auto) 0.4 0-1.3 10 ^3/uL Eosinophils # (Auto) 0.1 0-0.8 10 ^3/uL Basophils # (Auto) 0 0-0.2 10 ^3/uL Nucleated Red Blood Cells 0.1 % Sodium Level 145 136-145 mmol/L Potassium Level 3.0 L 3.5-5.1 mmol/L Chloride Level 109 H 98-107 mmol/L Carbon Dioxide Level 23 20-31 mmol/L Anion Gap 13 5-15 Blood Urea Nitrogen 16 9-23 mg/dL Creatinine 1.00 0.550-1.02 mg/dL Glomerular Filtration Rate Calc 55 >90 mL/min BUN/Creatinine Ratio 16.0 10.0-20.0 Serum Glucose 133 H 74-106 mg/dL Calcium Level 8.7 8.7-10.4 mg/dL B-Type Natriuretic Peptide 205.04 0-100 pg/mL Assessment/Plan Plan The patient is a 84-year-old female who presented to the hospital for syncopal episode. She mentions that she did not eat anything today and went to [facility] for some urgent work. While in [facility] she felt dizzy and passed out momentarily. Cardiology is involved for cardiac aspects of care. The patient is known to our practice from outside and before. The patient does have a BIV ICD ([employer]) which was implanted recently. There is some question if it works properly. The patient does have a history of persistent and atrial fibrillation for which is on Eliquis as outpatient. 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 Not in acute distress, no JVD. Frail and elderly patient. No goiter. There is no carotid bruit. Lungs are clear to auscultation. Cardiac: Irregular, no thrill. Abdomen is soft. No hepatomegaly. No edema. 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 Echocardiogram of October 03, 2023 had revealed: Ejection fraction of 55%, moderate to severe tricuspid regurgitation, right ventricular systolic pressure 43 mm Hg Echocardiogram of January 15, 2025 (performed in the office) revealed 4 chamber dil atation, ejection fraction of 30-35%, borderline concentric left ventricular hypertrophy, increased left ventricular filling pressures, mild aortic insufficiency, jqdn-ok-abqdzzem mitral regurgitation, moderate tricuspid regurgitation, dilated IVC with good respiratory variation and right ventricular systolic pressure of 36 mm Hg Left heart catheterization of July 22, 2023 revealed normal coronaries and LVEF of 55% Creatinine: 1.0 Potassium: 3.0 BNP: 205.04 Troponin (high sensitive): 7 - 8 Chest x-ray revealed: IMPRESSION: No acute intrathoracic abnormality. CT of the head revealed: IMPRESSION: No intracranial hemorrhage or mass effect. EKG reveal atrial fibrillation with rapid ventricle response, nonspecific ST-T changes Tele reveals atrial fibrillation with moderate ventricular response Patient is a 84-year-old female who presented with loss of consciousness/syncope. This happened while DMV. She mentions that she had not eaten anything since the night before. Does have old history of vasovagal syncope and the presentation could also be the same. It is of note that she does have persistent atrial fibrillation with a occasions of tachy arrhythmia. Does have a BiV-ICD ([employer]) implanted recently and reportedly it may not be functioning correctly. Does have systolic heart failure which is considered nonischemic cardiomyopathy (recognizing the for catheterization findings of July 2023). The systolic heart failure may be tachyarrhythmia induced secondary to atrial fibrillation. Patient has been kept on full anticoagulation (and tolerating) despite old history of subdural hematoma. Loss of consciousness Syncope Persistent atrial fibrillation AFib with RVR Hold history of subdural hematoma Nonischemic cardiomyopathy Systolic heart failure Status post BiV-ICD ([employer]) implantation CKD Mild pulmonary hypertension, history of Hold history of CVA Cardiac suggestion for management: Management on telemetry Follow-up electrolytes and kidney function test. Keep potassium above 4 and magnesium above 2 Request for Echocardiogram Request for BiV-ICD ([employer]) interrogation Continue Eliquis Thank you for consulting Further evaluation and management depends on above and clinical course A total of 75 minutes was spent reviewing the patient record, examining the patient, making a diagnostic and therapeutic plan, discussing this plan with medical personnel, following up on diagnostic studies and following the patient for clinical stability excluding any and all procedures. At least 50% of this time was spent in direct, [id number] contact. Thank you for allowing me to participate in this patient's care. Further recommendations will depend on patient's clinical course. Please do not hesitate to contact me if you have any questions or concerns. This medical document was created using electronic medical record system with [employer] computerized dictation system. Although this document has been carefully reviewed, there may still be some phonetic and typographical errors. These areas are purely typographical due to the imperfection of the software programs, and do not reflect any compromise in the patient's medical care. Plan discussed with: Patient, Spouse (at bedside), Other (nurse) PATY POSADAS MD May 20, 2025 17:00
[2025-05-20 18:00] VITALS: BP 117/48; RESP 11; TEMP 97.9; O2SAT 100
[2025-05-20 18:51] VITALS: PULSE 125
[2025-05-20] MEDS ORDERED: MORPHINE SULFATE INJ 2 MG/ml SYRG IV PRN (19:15)
[2025-05-20] MEDS ORDERED: POTASSIUM CHL 20 Meq TABLET PO ONE (19:15)
[2025-05-20] MEDS ORDERED: NITROGLYCERIN 0.4 MG SL TAB SL PRN (19:15)
[2025-05-20] MEDS ORDERED: ONDANSETRON HCL 4 MG/2 ML VIAL IV PRN (19:15)
[2025-05-20] MEDS ORDERED: DRONEDARONE HCL 400 MG TAB PO SCH (22:00)
[2025-05-20] MEDS ORDERED: APIXABAN 5 MG TAB PO SCH (22:00)
[2025-05-20] MEDS ORDERED: GABAPENTIN 100 MG CAP PO SCH (22:00)
[2025-05-20] MEDS ORDERED: ATORVASTATIN 20 MG TAB PO SCH (22:00)
--- NOTE | 2025-05-24 06:19 | ECG ---
[facility] Test Date: 2025-05-20 Test Time: 12:05:38 Pat Name: MANOLO TAYLOR Department: [facility] ED Patient ID: [id number] Room: Gender: F [employer] Displays Analyst: gena : 1940 Requested By: APRIL VARGHESE Order Number: [id number] Reading MD: Germán Ward Measurements Intervals Powell Rate: 97 P: 0 AL: 0 QRS: 61 QRSD: 91 T: 28 QT: 374 QTc: 475 Interpretive Statements Atrial fibrillation Low voltage, precordial leads Borderline T abnormalities, anterior leads Electronically Signed On 05-27-2025 10:03:56 PST by Germán Ward Please click the below link to view image of tracing.
== END 2025-05-20 19:32 | disposition left against medical advice (07) ==
LOC: EDUNIT# 11:58 → ER 11:58 → EDBD 11:58 → ER 19:32
DX: R55 Syncope and collapse (principal); R00.2 Palpitations; R06.02 Shortness of breath; I48.91 Unspecified atrial fibrillation; Z98.890 Other specified postprocedural states
CPT/HCPCS: 36415; 70450; 71045; 80048; 82947; 83880; 84484; 85025; 93005